=== PATIENT | female | born 1950 | race Caucasian/White ===

== ENCOUNTER 2017-08-10 09:21 | Outpatient (CLI) | payer OTHER ==
[2017-08-22] MEDS ORDERED: METFORMIN HCL850 MG PO (16:05)
== END 2017-08-10 09:38 | disposition home or self-care (01) ==
LOC: RAD 09:21 → EKG 09:21
DX: K80.10 Calculus of gallbladder with chronic cholecystitis without obstruction (principal); Z01.810 Encounter for preprocedural cardiovascular examination

== ENCOUNTER 2017-08-29 05:42 | Day surgery (SDC) | payer OTHER ==
[~2017-08-29 05:42] MED LIST: METFORMIN HCL850 MG PO
[2017-08-29] MEDS ORDERED: TYLENOL325 MG PO (13:07)
== END 2017-08-29 16:30 | disposition home or self-care (01) ==
LOC: CIR.AMB 05:42
DX: K42.9 Umbilical hernia without obstruction or gangrene (principal); K74.69 Other cirrhosis of liver; E66.01 Morbid (severe) obesity due to excess calories